=== PATIENT | female | born 1940 | race Caucasian/White ===

== ENCOUNTER 2024-07-30 12:49 | Emergency (ER) | payer OTHER, SELFPAY ==
[2024-07-30 12:58] VITALS: BP 161/99
--- NOTE | 2024-07-30 13:48 | ED.GENMED ---
History of Present Illness
General
Chief Complaint: Urinary Symptoms
Source: patient
Exam Limitations: none
Time Seen by Provider: 07/30/24 13:26
Nursing documentation reviewed up to this point in time: agreed with
History of Present Illness
History of Present Illness:
pt is a 83 y/o F with h/o HLD, copd, GERD
here with suprapubic pain, frequency, urgency, dysuria x 5 days
says she tried OTC med first and then 4 days ago went to where she was given azo and macrobid
pt says the azo helps but the pain returned today
she says the azo takes it away
she has not had fever, chills, nausea, diarrhea, back pain, vomiting
pt has no h/o kidney stones or kidney infections
i called and spoke with RN at the urgent care where she went and her culture showed no growth
Past History
Past History
ED Past Medical History: Cancer (Basel Cell Head), COPD, GERD, Psychiatric (Anxiety) and Other (Basal cell carcinoma with several surgeries for it of the scalp. Hiatel hernia, Colitis); Negative CAD, HTN, Hypercholesterolemia or IDDM
ED Past Surgical History: Brain (Scalp surgery reconstruction. Bone removed)
Social History
Tobacco: Former smoker
Alcohol: None
Drug: None
Personal:
Living: alone
Employment: Retired
Family History
Family History: Negative Early CAD
Review of Systems
Review of Systems
Allergies reviewed?: Yes
All Other Systems: Not applicable
Phy Exam
Physical Exam
Physical Exam:
GENERAL: Alert , in no apparent distress
EYE: pupils equal and reactive
NECK: Supple
ENT: o/p clr, mmm.
CARDIAC: Regular rate and rhythm .
LUNGS: Clear breath sounds bilaterally, no acute respiratory distress, no wheezes/rales/rhonchi
ABDOMEN: Soft, without focal tenderness, no r/g, no cvat, normal bowel sounds
NEUROLOGICAL: Alert and oriented, no focal neuro deficits
SKIN: Warm and dry, skin intact.
MUSCULOSKELETAL: No edema, well perfused. neg arnold's sign
PSYCH: Normal and appropriate interaction.
Course
Orders/Labs/Results
Orders:
Orders
07/30/24 13:56
CT Abd/Pel (IV only)-[facility] only Urgent
Comment:
Reason For Exam: lower abd pain
07/30/24 13:59
Complete Blood Count/With Diff Urgent
Comprehensive Metabolic Panel Urgent
Urinalysis Reflex To Culture Urgent
Urine Microscopic Reflex Cult Urgent
Urine Culture Urgent
JASS Source: U
Specimen Description:
07/30/24 16:57
Ciprofloxacin HCl [Cipro] 500 mg PO NOW STA
Abnormal Lab Results
07/30/24
13:59
MCH 31.1 H pg
(27.0-31.0)
MPV 10.6 H fL
(7.4-10.4)
Absolute Lymphs (auto) 1.0 L 10^3/uL
(1.2-3.4)
Lymphocytes % 16.0 L %
(20.5-51.1)
Leukocyte Esterase Rfl 1+ A
(Negative)
Urine Bacteria (Reflex) Few A
(Negative)
07/30/24 13:59
07/30/24 13:59
Vital Signs
Initial and Last Documented VS:
Initial Vital Signs
Temp Pulse Resp BP Pulse Ox
98.5 F 98 18 161/99 98
07/30/24 12:58 07/30/24 12:58 07/30/24 12:58 07/30/24 12:58 07/30/24 12:58
Last Documented Vital Signs
Temp Pulse Resp BP Pulse Ox
98.5 F 98 18 130/76 93
07/30/24 12:58 07/30/24 12:58 07/30/24 12:58 07/30/24 14:00 07/30/24 14:30
MDM/Problems Addressed
Differential Diagnosis Includes:
uti, kidney stone, diverticulitis
MDM/Problems Addressed:
83 y/o F
lower abd pain and urinary sypmtoms x 4-5 days
went to and had urine and was given macrobid and azo
got better on azo for 2 days but now haivng sypmtoms again
no fever/back pain/vomiting
no h/o kidney stones
pt's urine clutlure from was neg (i called and spoke with stsaff)
thus w/u for other cauess for urinary syptmoms and urgency: labs and ct
copy of ct given to patient, she was aware of infrarenal aneurysm
and other fidings
normal bladder and no stones
urine is mildly positive
given that she is still sypmtomatic on macrobid will stop the macrobid and switch to cipro x 5 days
*Critical Care Note
Total Time (30-74mins, 75-104mins- exclusive of procedures): Not Applicable
ED Attending Note
-
Portions of this chart may have been created with voice recognition software.� Occasional wrong word or��sound alike� substitutions may have occurred due to the inherent limitations of voice recognition software.
Discharge Plan
Departure
Patient Disposition: Home (Routine Discharge)
Date of Disposition: 07/30/24
Time of Disposition: 16:56
Patient with high blood pressure during this ER visit?: No
Condition: Fair
Covid-19: Not Applicable
Discharge Problem:
UTI (urinary tract infection)
Instructions: Urinary Tract Infection, Adult (DC)
Prescriptions:
New
ciprofloxacin HCl [Cipro] 500 mg tablet
500 mg PO BID Qty: 10 0RF
No Action
clonazepam 0.5 MG tablet
0.5 mg PO Q8H
levalbuterol HCl 0.63 MG/3 ML solution for nebulization
0.63 mg inhalation R Q4HPRN PRN (Reason: shortness of breath)
umeclidinium-vilanterol [Anoro Ellipta] 1 EACH blister with device
1 puff IH DAILY
ibuprofen [Advil Liqui-Gel] 200 MG capsule
400 mg PO .DAILYPRN PRN (Reason: headache)
Tramadol Hcl Tablet
50 mg PO Q6 PRN (Reason: pain)
Patient Comments:
hasn't filled Rx yet
zolpidem 5 MG tablet
5 mg PO HS
meclizine 25 MG tablet
25 mg PO Q8H Qty: 21 0RF
Referrals:
UNKNOWN - PT DOES,NOT KNOW [Family Provider] -
Activity Restrictions/Additional Instructions:
Your CAT scan does not show any signs of a kidney stoneOr any abnormality of your bladder. 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 Stop the
Macrobid. Take Cipro twice a day for 5 days. Drink fluids
, Take Tylenol for pain as needed. Follow-up with your doctor. We will send a new culture on this urine and call you if we need to change the antibiotic. Return for fever, vomiting, back pain, and worsening symptoms or any concerns. Please note
that fluoroquinolones can cause tendinopathy, avoid heavy lifting or exertion while you are on it
Interventions
Interventions:
*Risk Screen - Suicide Last Done: 07/30/24 12:58
*General Assessment Last Done: 07/30/24 12:58
*Neglect/Abuse Screening Last Done: 07/30/24 12:58
ED- Fall Risk Assessment Last Done: 07/30/24 13:59
*ED COVID-19 Vaccine History Last Done: 07/30/24 12:58
*Nursing Disposition Last Done: 07/30/24 17:20
ED-Female Genitourinary Assessment Last Done: 07/30/24 13:59
Discharge Date and Time
Discharge Date/Time: 07/30/24 17:21
Print Language: ANDORRAN
[2024-07-30 14:00] VITALS: BP 130/76
[2024-07-30 14:17] LABS: % Basophils 1.2 % (0-2); % Eosinophils 5.1 % (0-6); % Immature Granulocytes 0.2 % (0-0.5); % Monocytes 8.3 % (1.7-9.3); % Neutrophils 69.2 % (42.2-75.2); Absolute Basophils 0.1 10^3/uL (0-0.2); Absolute Eosinophils 0.3 10^3/uL (0-0.7); Absolute Monocytes 0.5 10^3/uL (0.1-0.6); Absolute Neutrophils 4.2 10^3/uL (1.4-6.5); Hematocrit 40.5 % (37.0-47.0); Hemoglobin 13.5 g/dL (12.0-16.0); Mean Corp Hgb Conc. 33.3 g/dL (33.0-37.0); Mean Corpuscular Hgb 31.1 pg (27.0-31.0); Mean Corpuscular Volume 93.3 fL (81.0-99.0); Mean Platelet Volume 10.6 fL (7.4-10.4); Nucleated Red Blood Cells % 0 %; Platelet Count 201 10^3/uL (130-400); Red Blood Cell Count 4.34 10^6/uL (4.20-5.40); Red Cell Dist. Width 13.1 % (11.5-14.5); White Blood Cell Count 6.1 10^3/uL (4.8-10.8)
[2024-07-30 14:27] LABS: ALT (SGPT) 24 U/L (0-35); AST (SGOT) 28 U/L (14-36); Albumin 4.1 g/dl (3.5-5.0); Alkaline Phosphatase 76 U/L (38-126); Blood Urea Nitrogen 9 mg/dl (7-17); Carbon Dioxide 26 mmol/L (22-30); Chloride 102 mmol/L (98-107); Glucose 94 mg/dl (70-99); Potassium 4.1 mmol/L (3.5-5.1); Sodium 136 mmol/L (135-145); Total Bilirubin 0.5 mg/dl (0.2-1.3); Total Protein 6.6 g/dl (6.3-8.2); eGFR > 60.00
[2024-07-30 15:10] LABS: Urine Albumin Negative (Neg - Trace); Urine Bilirubin Negative (Negative); Urine Character Clear (Clear); Urine Color Yellow; Urine Glucose Negative (Negative); Urine Ketone Negative (Negative); Urine Leukocyte 1+ (Negative); Urine Nitrite Negative (Negative); Urine Occult Blood Negative (Negative); Urine Urobilinogen Negative (Neg - 1+)
[2024-07-30 15:24] LABS: Urine Red Blood Cell 0-2 /HPF (0-2)
[2024-07-30 15:25] LABS: Urine Bacteria Few (Negative)
[2024-07-30] MEDS: CIPRO 500 MG PO (17:03)
== END 2024-07-30 17:21 | disposition home or self-care (01) ==
LOC: EMR 12:49
PROVIDERS: Physician Assistant; EMERGENCY PHYSICIAN Emergency Medicine
DX: N39.0 Urinary tract infection, site not specified (principal); E78.00 Pure hypercholesterolemia, unspecified; J44.9 Chronic obstructive pulmonary disease, unspecified; K21.9 Gastro-esophageal reflux disease without esophagitis; F41.9 Anxiety disorder, unspecified; Z85.828 Personal history of other malignant neoplasm of skin; Z87.891 Personal history of nicotine dependence
CPT/HCPCS: 99284; 74177; 80053; 81003; 81015; 85025; 87086; Q9967